=== PATIENT | female | born 1985 | race Caucasian/White ===

== ENCOUNTER 2018-12-31 14:44 | Emergency (ER) | payer SELFPAY ==
[2018-12-31 14:45] VITALS: BP 160/102; PULSE 100; RESP 16; TEMP 37; O2SAT 98; BMI 28.4
[2018-12-31 15:09] LABS: Bacteria 0 SEEN /hpf (None Seen); Mucous, Urine 0 SEEN /hpf (<or=2+); White Blood Cells 0 SEEN /hpf (0-5)
[2018-12-31 15:19] LABS: Color, Urine Straw (Yellow); Glucose, Dipstick Normal (Normal); Ketone-Dipstick Negative (Negative); Leukocyte Esterase-Dipstick Negative /ul (Negative); Nitrite-Dipstick Negative (Negative); Occult Blood-Urine 150 /ul (Negative); Protein-Dipstick Negative (Negative); Urine Bilirubin Dipstick Negative (Negative); Urine Clarity Clear (Clear); Urine Urobilinogen Normal (Normal)
[2018-12-31 15:29] LABS: Red Blood Cells-Urine 0-5 SEEN /hpf (0-5); Squamous Epithelial Cells - UA 0-5 SEEN /hpf (5-10)
[2018-12-31 15:48] VITALS: RESP 16
--- NOTE | 2018-12-31 15:57 | ED.VIS.GEN ---
History of Present Illness Informant: Patient Onset: Month(s) Context: Gradual Onset Timing: Intermittent, Waxes and wanes Current Severity: Moderate Maximum Severity: Moderate Worsened by: some movements Relieved by: voiding Narrative: Temitope is a 33-year-old female who presents with intermittent left adnexal tenderness for 2 years. Usually is related to her menstrual cycle and lasts about a day. She has noted the pain to becoming more frequent and has been constant for the last 3 weeks. Last menstrual period was 3 days ago. She denies dysuria but voiding does improve the pain. She also complains of urinary frequency. She denies vaginal discharge or fever or chills. Intermittently the pain does radiate to her back. Prior similar symptoms: No Recent Illness/Hospitalization: No <Jenny Nicole - Last Filed: 12/31/18 17:36> <Jeimy Adam - Last Filed: 01/01/19 02:23> Chief Complaint: Abd Pain Past Medical History Smoking Status: Current every day smoker <Jenny Nicole - Last Filed: 12/31/18 17:36> <Jeimy Adam - Last Filed: 01/01/19 02:23> - Allergies and Home Meds Allergies/Adverse Reactions: Allergies No Known Allergies Allergy (Verified 12/31/18 15:44) Primary Care Physician: Fabio Lara MD [Primary Care Provider] - Gregg Navarro [STAFF PHYSICIAN] - Review of Systems General: Denies: Chills, Fever Eyes: Denies: Visual changes - left, Blurred vision - left Cardiovascular: Denies: Chest pain, Palpitations Respiratory: Denies: Dyspnea, Cough, Sputum Gastrointestinal: Denies: Abdominal pain, Nausea, Vomiting Genitourinary: Reports: Frequency. Denies: Dysuria, Hematuria Musculoskeletal: Denies: Myalgias, Arthralgias Neurological: Denies: Headache, Weakness, Parasthesia <Jenny Nicole - Last Filed: 12/31/18 17:36> Physical Exam Vital Signs/Narrative: Vital Signs Temp Pulse Resp BP Pulse Ox 12/31/18 15:48 16 12/31/18 14:45 98.6 F 100 16 160/102 H 98 Inital Vital Signs reviewed: Yes General: Well nourished, Well developed Head: Normocephalic, Atraumatic Eyes: Perrl, EOMI ENT: Moist mucous membranes Cardiovascular: Regular rate, Regular rhythm Respiratory: No distress, CTA bilaterally Abdomen: Soft, Tender. Negative for: Nondistended, Guarding, Rebound tenderness : - - Bimanual exam reveals fullness and tenderness to the left adnexal region. No discharge or blood was noted on glove. Back: Nontender, Normal Inspection. Negative for: CVA tenderness Extremities: Nontender, No edema Skin: Normal color, No rash Neurological: Alert, Oriented x3 Psychological: Normal affect, Normal Mood <BonnieJenny - Last Filed: 12/31/18 17:36> Abdomen: Nondistended <Jeimy Adam - Last Filed: 01/01/19 02:23> Diagnostic/Tx/Re-eval - Medical Decision Making Bimanual exam revealed fullness and tenderness at the left adnexal region. There was no purulent drainage or fever concerning for tubo-ovarian abscess. This is consistent with ovarian cyst versus mass. test was negative and urinalysis did reveal blood but she does not describe kidney stone type pain or UTI. She was treated with Toradol with good results. She instructed to use Naprosyn as prescribed and heating pad for her pain. She is also instructed to follow-up with [facility] for further evaluation of her pain. She understands that this may be an ovarian cyst versus a mass. Pelvic ultrasound was not available at this time she will follow-up as an outpatient. <Jenny Nicole - Last Filed: 12/31/18 17:36> - Medical Decision Making Patient is a 33-year-old female who presents with left pelvic pain which has been ongoing for months to years. She states it comes and goes throughout her menstrual cycle. She denies urinary complaints. Abdomen is soft with minimal left lower quadrant tenderness, no rebound or guarding. hCG negative. She had improvement following Toradol. She is instructed to take Naprosyn. She is advised to follow-up with [facility]. Advised to return to the ED for worsening complaints. <JairJeimy - Last Filed: 01/01/19 02:23> ED Disposition <BonnieJenny - Last Filed: 12/31/18 17:36> <JairJeimy - Last Filed: 01/01/19 02:23> - Plan for ED Patient: Disposition: Home or Assisted Living Diagnosis: Ovarian cyst, Pelvic pain Prescriptions: Naproxen [Naprosyn] 500 mg PO BID PRN #20 tab Referrals: Fabio Lara MD [Primary Care Provider] - Gregg Navarro [STAFF PHYSICIAN] -
[2018-12-31] MEDS: Ketorolac 30 MG/ML Syringe IM (16:32)
[2018-12-31 17:03] LABS: Internal QC Validated? YES +Cl - CLEAR BKGD
[2018-12-31 17:07] LABS: Pregnancy, Urine Negative Negative
[2018-12-31 17:36] VITALS: RESP 18
--- NOTE | 2018-12-31 18:29 | ED.RN ---
Pt called back inquiring about rx. did not receive one. After referencing the CLERICAL AIDE TEACHER pt was given option to purchase Naproxen OTC or return for script. Pt was agreeable to purchasing med OTC.
== END 2018-12-31 17:55 | disposition home or self-care (01) ==
PROVIDERS: Emergency Provider Nurse Practitioner; Family Provider Family Medicine; PCP Family Medicine
DX: N83.209 Unspecified ovarian cyst, unspecified side (principal); R10.2 Pelvic and perineal pain; R35.0 Frequency of micturition; F17.200 Nicotine dependence, unspecified, uncomplicated
CPT/HCPCS: 81001; 81025; 96372; 99282

== ENCOUNTER → 2019-01-11 12:17 | Outpatient (CLI) | payer SELFPAY ==
[2018-12-31 14:45] VITALS: BMI 28.4
--- NOTE | 2019-01-11 12:24 | US_ITS ---
STUDY: ULTRASOUND TRANSVAGINAL CLINICAL: Female, 33 years old. Left lower quadrant pain 6 months TECHNIQUE: Transvaginal and transabdominal (Transvaginal imaging performed for enhanced visualization of uterus and endometrium, and posterior adnexal structures). COMPARISON: None. FINDINGS: The uterus is anteverted measuring 8.1 x 5.4 x 3.3 cm. The myometrium is normal. There are somewhat prominent subserosal uterine veins. Nabothian cyst of the cervix. Endometrium 9 mm, normal echotexture. No pelvic cul-de-sac free fluid. The right ovary measures 31 x 30 x 24 mm, normal vascularity, small physiologic follicles, normal echotexture. There is no right adnexal mass or suspicious cyst. The left ovary measures 40 x 44 x 23 mm. Normal vascularity. Crenelated simple appearing cyst measuring 20 x 14 x 14 mm, most consistent with a cyclical involuting corpus luteum cyst. Vasculature in the left adnexa is somewhat prominent. US/Pelvic (Non ) IMPRESSION: Involuting 20 mm physiologic dominant follicle of the left ovary. Normal right ovary. Normal myometrium and endometrium. Somewhat prominent vasculature in the left adnexa and prominent subserosal uterine veins suggests the possibility of nutcracker phenomenon which may contribute to symptoms of pelvic venous congestion. Electronically Signed: Ahmet Shi MD at 15:03 EDT Tel , Service support ,
--- NOTE | 2019-01-11 12:24 | US_ITS ---
STUDY: ULTRASOUND TRANSVAGINAL CLINICAL: Female, 33 years old. Left lower quadrant pain 6 months TECHNIQUE: Transvaginal and transabdominal (Transvaginal imaging performed for enhanced visualization of uterus and endometrium, and posterior adnexal structures). COMPARISON: None. FINDINGS: The uterus is anteverted measuring 8.1 x 5.4 x 3.3 cm. The myometrium is normal. There are somewhat prominent subserosal uterine veins. Nabothian cyst of the cervix. Endometrium 9 mm, normal echotexture. No pelvic cul-de-sac free fluid. The right ovary measures 31 x 30 x 24 mm, normal vascularity, small physiologic follicles, normal echotexture. There is no right adnexal mass or suspicious cyst. The left ovary measures 40 x 44 x 23 mm. Normal vascularity. Crenelated simple appearing cyst measuring 20 x 14 x 14 mm, most consistent with a cyclical involuting corpus luteum cyst. Vasculature in the left adnexa is somewhat prominent. US/Transvaginal Non- IMPRESSION: Involuting 20 mm physiologic dominant follicle of the left ovary. Normal right ovary. Normal myometrium and endometrium. Somewhat prominent vasculature in the left adnexa and prominent subserosal uterine veins suggests the possibility of nutcracker phenomenon which may contribute to symptoms of pelvic venous congestion. Electronically Signed: Ahmet Shi MD at 15:03 EDT Tel , Service support ,
== END ==
PROVIDERS: Family Provider Family Medicine; PCP Family Medicine
DX: R10.2 Pelvic and perineal pain (principal)
CPT/HCPCS: 76830; 76856; 93976

== ENCOUNTER → 2019-03-09 12:05 | Outpatient (CLI) | payer SELFPAY ==
[2019-03-09 08:26] VITALS: BMI 28.4
== END ==
LOC: LABSPEC 12:08
PROVIDERS: Family Provider Family Medicine; PCP Family Medicine; Referring Provider Obstetrics & Gynecology; Visit Provider Obstetrics & Gynecology
DX: N94.89 Other specified conditions associated with female genital organs and menstrual cycle (principal)
CPT/HCPCS: 87086; 87088

== ENCOUNTER → 2019-03-20 12:51 | Outpatient (CLI) | payer SELFPAY ==
[2019-03-09 08:26] VITALS: BMI 28.4
--- NOTE | 2019-03-20 12:57 | CT_ITS ---
STUDY: CT ABDOMEN AND PELVIS WITH AND WITHOUT CONTRAST REASON FOR EXAM: Female, 33 years old. Microscopic hematuria RADIATION DOSAGE (If Supplied By Facility): CTDIvol = ( 12.76 ) mGy, DLP = ( 1738.51 ) mGycm TECHNIQUE: Transaxial images were obtained from the dome of the diaphragm to the symphysis pubis without oral contrast. IV Isovue 300 100CC was administered. Sagittal and coronal images were reconstructed. Individualized dose optimization techniques were used for this CT. COMPARISON: None. FINDINGS: The visualized lung bases are unremarkable. The visualized portions of the heart are within normal limits. Normal liver. Normal gallbladder and extrahepatic biliary system. Normal spleen. Normal pancreas. Normal bilateral adrenal glands. There are multiple small cysts in the right kidney measuring up to 1.0 cm. Several cystic structures exophytic some are parenchymal. There is no evidence of hydronephrosis. There are multiple similar appearing left-sided renal cysts the largest of which is an exophytic cyst measuring 2.2 x 1.8 cm. No evidence of hydronephrosis. Normal visualized stomach. Normal small intestine. There is a tortuous appearance of the colon. There is a redundant tortuous appearance of the distal sigmoid and rectum. The appendix is visualized and appears normal. Normal abdominal aorta. Normal inferior vena cava. Normal retroperitoneum. Normal urinary bladder. Normal visualized uterus. Normal abdominal wall. There is slight anterolisthesis at the level of L5-S1 mild grade 1 spondylolisthesis. There is spondylolysis. There is a broad disc protrusion there is moderate neural foraminal narrowing and minimal central stenosis. At L4-L5 there is minimal neural foramina narrowing no significant central stenosis. CT/CT Abd/Pelvis W/WO Contrast IMPRESSION: No visualized renal calculi however there are multiple cysts throughout both kidneys. The largest cysts have benign appearing features. Recommend consideration for follow-up serial renal ultrasound on a short-term basis then in 6 months if the cyst still appear benign. No visualized renal ureteral bladder calculi. Tortuous redundant appearing decompressed large bowel loops. Electronically Signed: Maranda Schuler MD at 21:45 EDT Tel , Service support ,
== END ==
PROVIDERS: Family Provider Family Medicine; PCP Family Medicine; Referring Provider Urology; Visit Provider Urology
DX: R31.9 Hematuria, unspecified (principal)
CPT/HCPCS: 74178; Q9967

== ENCOUNTER 2019-05-16 07:31 | Day surgery (SDC) | payer MEDICAID, SELFPAY ==
[2019-04-05 14:50] VITALS: BMI 30.4
--- NOTE | 2019-05-15 21:53 | HP.PCM_ITS ---
- Problem List (1) Acute pain in female pelvis Status: Acute Comment: h/o dysmenorrhea, since mid december, recommend diagnostic laparoscopy, d and c hysteroscopy, chromotubation (2) Pelvic congestion Status: Acute Comment: possible nutcracker phenomenon seen on ultrasound. start with NSAIDs, (3) Primary female infertility Status: Acute Comment: recommend chromotubation and laparoscopy, recommend semen analysis History and Physical Date of Admission: 05/16/19 Intake Vital Signs 04/05/19 Height 5 ft 3 in 04/05/19 Weight: 171 lb 8 oz 04/05/19 Body Mass Index (BMI) 30.4 04/05/19 Blood Pressure 148/86 H 04/05/19 Body Mass Index (BMI) 28.4 Intake Visit Reasons: 4 WEEK FOLLOW UP PER Night Time Nanny Required: No Is patient in pain?: Yes Pain scale (1-10): 4 Allergies No Known Allergies Allergy (Verified 04/05/19 14:50) Medications Naproxen [Naprosyn] 500 mg PO BID PRN #20 tab 12/31/18 [Rx Confirmed 04/05/19] cyclobenzaprine 10 mg tablet 10 mg PO TID PRN #30 tab 03/09/19 [Rx Confirmed 04/05/19] ibuprofen 200 mg capsule 200 mg PO Q6H 03/09/19 [History Confirmed 04/05/19] ibuprofen 200 mg tablet 600 mg PO Q6H PRN #90 tab 03/09/19 [Rx Confirmed 04/05/19] Post menopausal: No Patient : No : No PFSH Medical History Anxiety (Acute) Surgical History History of wisdom tooth extraction, class II edentulism (Acute) S/P tonsillectomy and adenoidectomy (Acute) Family History Father Heart disease S/P triple vessel bypass Social History (Updated 04/05/19 @ 15:25 by Ofe Carballo MD) Smoking Status: Current every day smoker alcohol intake: current substance use type: marijuana caffeine: Yes what type of physical activity do you participate in: walking seatbelt use: always do you feel safe at home: Yes additional social history: Boyfriend- [facility] at [employer] 4 WEEK FOLLOW UP PER : Details: NISSA COTA is a 33 year old who presents for follow of lower pelvic pain and dyspareuia. she is having discomfort still, limiting work and activities. she had a normal cystoscopy with jackelin spain that was normal. she has a history of infertility for three years and is wanting to maintain fertility. she is ready to proceed with surgical evaluation. she had an abnormal ct scan that showed a disc protusion and renal cysts. Pregancy History 0 Elective abortions Hx Para Spontaneous abortions Hx # Term Pregnancies Ectopic pregnancies Hx # Pregnancies Multiple births # of living children ROS Const Constitutional: Denies fatigue, fever(s), headache(s), increased appetite, poor appetite, weight gain or weight loss ENT ENT: Denies dry mouth Exam Const General: cooperative, healthy appearing, comfortable, no acute distress, well developed Orientation: alert HENMT Head: normal to inspection, normocephalic Ears: hearing grossly normal bilaterally, external ears normal Nose: external nose normal, nares normal Face and sinus: normal facial exam Neck Neck: normal visual inspection, no lymphadenopathy, trachea midline Thyroid: thyroid normal Resp Effort & Inspection: normal respiratory effort Musc Other: gross motor intact no deficits, full bilateral strength Skin General: no rashes or lesions noted Neuro Motor: muscle tone normal throughout Assessment & Plan Problems 1. Primary female infertility N97.9 recommend chromotubation and laparoscopy, recommend semen analysis 2. Pelvic congestion N94.89 possible nutcracker phenomenon seen on ultrasound. start with NSAIDs, 3. Acute pain in female pelvis R10.2 h/o dysmenorrhea, since mid december, recommend diagnostic laparoscopy, d an d c hysteroscopy, chromotubation Plan After discussing the patient's diagnosis and treatment plan options, patient wishes to proceed with surgical management. I have discussed with the patient the risks, benefits, and alternatives of the procedure which include but are not limited to risks of anesthesia, bleeding, infection, possible damage to bowel, bladder, or surrounding vasculature which could lead to additional surgery to evaluate any complications. Patient agrees to procedure and wishes to proceed. ACOG/uptodate references given for additional information regarding procedure. Problem list updated and treatment plans were reviewed with the patient and relevant educational handouts given. See problem list details for specific plan information. Coding Level of Care Code Off vis,est,level 4 Diagnoses Primary female infertility N97.9 Pelvic congestion N94.89 Acute pain in female pelvis R10.2 UPDATE- I have seen the patient and performed any clinically relevant updates to the history and physical exam. Ofe Carballo MD
--- NOTE | 2019-05-16 | EMB_PTH ---
PATIENT: NISSA COTA LOC: [facility] [place] U#:[id number] AGE/SX: 34/F ROOM: RE05/16/[address]: Dr. Ofe Carballo MD : [id number] BED: DIS: 05/16/2019 SPEC #: [id number] RECD: 05/16/19 13:17 STATUS: HUE CL #: [id number] CORRIE: 05/16/19 00:[address]: Ofe Carballo DEPT: SURGICAL PATHOLOGY RECD BY: Edwin Byrd ENTERED: 05/16/19 13:17 SP TYPE: ENDOM BX/C OT DR: No Primary Care Phys Tissues: Endometrium, NOS Procedures: Surgery Specimen Level IV HEADER OPERATION: Hysteroscopy, D & C, chromotubation PRE-OP DIAGNOSIS: Acute pelvic pain; pelvic congestion; infertility TISSUE SUBMITTED: Endometrial curettings MICROSCOPIC DIAGNOSIS Endometrium, curettings: Secretory endometrium. Rare fragments of detached benign metaplastic squamous epithelium. AM:ilsa 05/17/19 MICROSCOPIC DESCRIPTION Slides are reviewed. GROSS DESCRIPTION Received in fixative is one container labeled with the patient's name and designated endometrial curettings. The specimen consists of multiple fragments of hemorrhagic soft tissue mixed with mucoid tissue that in aggregate measure 5 x 3 x 0.3 cm. A few of the fragments also show greenish dye discoloration. The entire specimen is submitted in two cassettes. / SJ:ilsa 05/16/19 TC:5 CPT: 25067
--- NOTE | 2019-05-16 07:25 | PCM.OPRPT ---
Problem List (1) Acute pain in female pelvis Status: Acute Comment: h/o dysmenorrhea, since mid december, recommend diagnostic laparoscopy, d and c hysteroscopy, chromotubation (2) Pelvic congestion Status: Acute Comment: possible nutcracker phenomenon seen on ultrasound. start with NSAIDs, (3) Primary female infertility Status: Acute Comment: recommend chromotubation and laparoscopy, recommend semen analysis Report of Operation Date of Procedure: 05/16/19 Pre-Operative Diagnosis: pelvic congestion pelvic pain infertility Post-Operative Diagnosis: Abnormal pelvic vasculature questionable fallopian tube blockage polypoid uterine cavity Surgery/Procedure Performed:: d and c hysteroscopy diagnostic laparoscopy chromotubation Description of Surgical Findings:: Pelvic congestion regularly on the right ovarian fossa going into the cervix and uterus. Extravasation of the methylene blue into the myometrium and vasculature no fallopian tube spillage seen bilaterally blockage suspected thickened polypoid endometrial lining salesperson terrazzo tiles: Benjamín Steele Type of Anesthesia:: General Special Medications: none Specimen's removed: EMC Drains: none Estimated Blood Loss (mL): 25 Fluids Replaced: crystalloid Description of Procedure: Patient was taken in the operating room and was placed under general anesthesia was prepped and draped in normal sterile fashion in the dorsal lithotomy position. Bladder was drained of clear urine and SCDs were on preoperatively. Uterus was sounded and a uterine manipulator was placed after dilating. Attention was then paid to the abdominal portion of the procedure and the umbilicus was elevated with towel clamps and injected with Marcaine and after a 5 mm incision was made and the Veress needle was entered into the abdomen confirmed to be intra-abdominal with a low opening pressure of less than 5 mmHg. Abdomen was insufflated with CO2 gas however pressure began to increase rapidly and therefore a 5 mm optical trocar was placed under direct visualization and significant pneumoperitoneum was seen and therefore a left upper quadrant port after placement of an OG tube by anesthesia was inserted, was attempted to insert a Veress needle in the midclavicular line 2 cm below the lowest rib and good placement cannot be confirmed and therefore the open Betancourt technique was taken at the umbilicus. Thickened rectus belly muscles were seen right at the base of the umbilicus which had led to the difficulty entering the abdomen. Betancourt trocar was placed after sutures tied bilaterally and pelvic and upper abdominal structures were well visualized.. Uterus was well visualized and bilateral fallopian tubes identified. Possible small endometriosis implant was seen but nothing active suspected. No adhesions or abnormalities were seen grossly in the lower or upper abdomen. Methylene blue fluid was inserted through the uterine manipulator and bilateral tubal blockage was suspected due to lack of spillage of the dye. The dye was noted to extravasate into the myometrium and surrounding vasculature though and therefore it was manipulated to a different area in the uterus but still this finding was seen. Balloon was taken down with no difference seen and therefore bilateral tubal patency could not be confirmed. Liver and upper abdomen were visualized notably within normal limits and no other gross abnormalities were seen in the abdomen. All instruments removed from the abdomen after gas was desufflated. Fascia was closed with 0 Vicryl and port sites were closed with 3-0 Monocryl Steri's and op sites were applied. A weighted speculum was placed in the vagina and the anterior lip of the cervix was grasped with a single-tooth tenaculum. Cervix was progressively dilated to allow passage of a 5 mm hysteroscope. The lining was fully visualized and noted to have polypoid thickened irregular lining. Uterine sounded to 9 cm. Curettage was performed and a significant amount of tissue was removed, sent to pathology. All instruments were removed from the vagina and excellent hemostasis was noted. Patient was awoken and taken to recovery in stable condition. Grafts/Implants Used: none - Complications none - Admit VTE Documentation VTE Present on Admission: No Multi Select Codes - Urinary/Genital Urinary/Genital CPT Codes: 33734 Chromotubation, 72765 Hysteroscopy, diagnostic, Other Procedure See Report - diagnostic laparoscopy- please tell shelley to add this code
--- NOTE | 2019-05-16 07:32 | PCM.DC.TUB ---
Discharge Diet: No Restrictions - Increase fluid intake for the next 48 hours. Discharge Activity: Return to Normal Activity, May Drive - when you are no longer taking narcotic pain medications., May Shower, May Take a Tub Bath - in 7 days Additional Activity Instructions:: Ambulate often the next week after surgery. Nothing in the vagina for 5 days. Call your doctor if your incision/area has: Continuous Slow Oozing, Sudden Increased Bleeding, Increased Pain/ Swelling, Increased Redness, Foul Smelling Discharge Call your doctor if you observe: Fever of 101 or Higher Allergies/Adverse Reactions: Allergies No Known Allergies Allergy (Verified 04/25/19 13:17) Medications to take at Discharge cyclobenzaprine 10 mg tablet 10 mg PO TID PRN #30 tab 03/09/19 ibuprofen 200 mg tablet 600 mg PO Q6H PRN #90 tab 03/09/19 Naproxen [Naprosyn] 250 - 500 mg PO Q8H PRN PRN #30 tab 05/16/19 Oxycodone HCl/Acetaminophen [Percocet 5-325] 1 - 2 tab PO Q6H PRN PRN 7 Days #15 tab 05/16/19 The following prescriptions were given: Naproxen [Naprosyn] 250 - 500 mg PO Q8H PRN PRN #30 tab PRN Reason: MILD PAIN Transmission Status: Sent to [facility] Oxycodone HCl/Acetaminophen [Percocet 5-325] 1 - 2 tab PO Q6H PRN PRN 7 Days #15 tab PRN Reason: Pain Transmission Status: Sent to [facility] Orders to be completed after discharge: Type & Screen Time Frame: 05/02/19, Facility: [facility], Location: Laboratory Basic Metabolic Profile (BMP) Time Frame: 05/02/19, Facility: [facility], Location: Laboratory CBC-Complete Blood Cnt No Diff Time Frame: 05/02/19, Facility: [facility], Location: Laboratory ,Urine Time Frame: 05/02/19, Facility: [facility], Location: Laboratory Primary Care Physician: Fabio Lara MD [Primary Care Provider] - Test Results: Test results from this visit will be discussed in further detail at your follow-up appointment, if applicable. Please Follow Up With: Ofe Carballo MD - [phone]
[2019-05-16 07:54] VITALS: BP 151/94; PULSE 105; RESP 16; TEMP 37.2; O2SAT 100; BMI 30.7
[2019-05-16 07:56] LABS: Internal QC Validated? YES +Cl - CLEAR BKGD
[2019-05-16 08:08] LABS: Pregnancy, Urine Negative Negative
[2019-05-16] MEDS: Lactated Ringers 1,000 ML 100 ML IV (08:10)
[2019-05-16 08:24] LABS: Hematocrit 39.5 % (37-47); Hemoglobin 13.6 g/dL (12.0-15.0); Mean Corp Hgb Conc 34.4 g/dL (32-36); Mean Corpuscular Hgb 32.5 pg (27.0-32.0); Mean Corpuscular Volume 94.5 fL (81-99); Mean Platelet Vol. 9.8 fl (6.2-12.0); Platelet Count 310 K/mm3 (150-450); RBC Distribution Width CV 12.5 % (11.6-14.6); RBC Distribution Width SD 43.7 fl (35.1-43.9); Red Blood Count 4.18 M/mm3 (4.2-5.4); White Blood Count 10.2 K/mm3 (4.4-11.0)
[2019-05-16 08:55] LABS: Anion Gap 7 (5-15); BUN 16 mg/dL (7-18); BUN/Creat Ratio 20.1 RATIO (10-20); Calcium,Total 8.6 mg/dL (8.5-10.1); Chloride 109 mmol/L (98-107); EST Glomerular Filtration Rate 87 mL/min (>60); Est Glom Filt Rate - Afr Amer 105 mL/min (>60); Estimated Creatinine Clearance 80.42 ml/min; Glucose 91 mg/dL (74-106); Potassium 4.2 mmol/L (3.5-5.1); Sodium Level 138 mmol/L (136-145)
[2019-05-16] MEDS: Bupivacaine 0.25% 30 ML Vial (09:25)
[2019-05-16 10:12] VITALS: BP 127/83; BP 151/94; PULSE 86; RESP 16; TEMP 36.9; O2SAT 93
[2019-05-16 10:15] VITALS: BP 133/81; BP 151/94; PULSE 83; RESP 18; O2SAT 93
[2019-05-16 10:49] VITALS: BP 131/84; BP 151/94; PULSE 83; RESP 18; O2SAT 100
[2019-05-16 11:04] VITALS: BP 138/83; BP 151/94; PULSE 90; RESP 18; TEMP 37.3; O2SAT 100
[2019-05-16] MEDS: HYDROcodone Bitartrate/Apap 5/325 Tablet PO ×2 (11:54→12:22)
[2019-05-16 13:19] VITALS: BP 151/94
== END 2019-05-16 13:22 | disposition home or self-care (01) ==
LOC: SDC 07:32 → AC 07:33
PROVIDERS: Anesthesiology; Referring Provider Obstetrics & Gynecology; Visit Provider Obstetrics & Gynecology
PROC: 0UDB8ZZ Extraction of Endometrium, Via Natural or Artificial Opening Endoscopic (ICD-10-PCS; CPT 58558; principal; 2019-05-16 09:00)
PROC: (CPT 49320; 2019-05-16 09:00)
DX: N94.89 Other specified conditions associated with female genital organs and menstrual cycle (principal); N97.9 Female infertility, unspecified; N94.6 Dysmenorrhea, unspecified; R10.2 Pelvic and perineal pain; F17.200 Nicotine dependence, unspecified, uncomplicated; Z79.1 Long term (current) use of non-steroidal anti-inflammatories (NSAID)
CPT/HCPCS: 00952; 58350; 58558; 80048; 81025; 85027; 86850; 86900; 86901; 88305; J7120; J2405; Q9968

== ENCOUNTER → 2019-12-05 11:44 | Outpatient (CLI) | payer MEDICAID, SELFPAY ==
[2019-06-22 13:01] VITALS: BMI 31.3
--- NOTE | 2019-12-05 11:49 | US_ITS ---
STUDY: RENAL ULTRASOUND - COMPLETE REASON FOR EXAM: Female, 34 years old. BILATERAL RENAL CYSTS TECHNIQUE: Ultrasound evaluation of the kidneys was performed with real-time and static sam-scale imaging. COMPARISON: CT 03/20/2019 FINDINGS: RIGHT KIDNEY: Normal location of the right kidney, which is normal in size. The right kidney measures 10.7 x 5.9 x 4.7 cm. There is a normal cortex of the right kidney. The renal cortex measures 1.4 cm. Multiple right renal cysts, the largest measuring up to 13 mm. Nonobstructing right renal calculus measuring 6 x 4 x 4 mm. There is no right hydronephrosis. DISTAL RIGHT URETER: There is non-visualization of the distal right ureter. There is no demonstrated right ureterovesical junction calculus. There is a visualized right ureteral jet. LEFT KIDNEY: Normal location of the left kidney, which is normal in size. The left kidney measures 10.4 x 5.5 x 5.0 cm. There is a normal cortex of the left kidney. The renal cortex measures 1.2 cm. Multiple left renal cysts, the largest measuring up to 25 mm. Nonobstructing left renal calculus measuring 3 x 3 x 3 mm. There is no left hydronephrosis. BLADDER: The distended urinary bladder has a volume of for 42.25 ml. There is a normal wall thickness of the distended urinary bladder. There is no demonstrated mass within the urinary bladder. There are no demonstrated bladder calculi. US/Kidney and Bladder IMPRESSION: Bilateral renal cysts and nonobstructing calculi. No hydronephrosis. No solid renal masses are seen. Electronically Signed: Reynaldo Jefferson MD at 17:41 EDT Tel , Service support ,
== END ==
PROVIDERS: PCP Internal Medicine; Referring Provider Urology; Visit Provider Urology
DX: N28.1 Cyst of kidney, acquired (principal)
CPT/HCPCS: 76770

== ENCOUNTER → 2020-01-03 15:51 | Outpatient (CLI) | payer MEDICAID, SELFPAY ==
[2019-06-22 13:01] VITALS: BMI 31.3
--- NOTE | 2020-01-03 15:55 | CT_ITS ---
STUDY: CT ABDOMEN AND PELVIS WITHOUT CONTRAST REASON FOR EXAM: Female, 34 years old. PT STATED R/O KIDNEY STONES RADIATION DOSAGE (If Supplied By Facility): CTDIvol = ( 9.32 ) mGy, DLP = ( 465.51 ) mGycm TECHNIQUE: Transaxial images were obtained from the dome of the diaphragm to the symphysis pubis without oral contrast, and without intravenous contrast. Sagittal and coronal images were reconstructed. Individualized dose optimization techniques were used for this CT. COMPARISON: Renal ultrasound 12/05/2019 and prior abdomen and pelvic CT exam of 03/20/2019 FINDINGS: The visualized lung bases are unremarkable. The visualized portions of the heart are within normal limits. Normal liver. Normal gallbladder and extrahepatic biliary system. Normal spleen. Normal pancreas. Normal bilateral adrenal glands. Normal size of the right kidney. Stable right renal cysts. There is one flat 3 mm long nonobstructing calcification in the lower pole of the right kidney and a similar minimal calcification in the upper pole. Negative for hydronephrosis or ureteral stones. Stable appearance of the left kidney. Negative for hydronephrosis or stones. Normal visualized stomach. Normal small intestine. Normal colon. The appendix is visualized and appears normal. Normal abdominal aorta. Normal inferior vena cava. Normal retroperitoneum. Normal urinary bladder. Negative for pelvic mass or free fluid in the pelvis. Normal abdominal wall. Advanced degenerative disc changes at L5-S1 are essentially stable from prior exam. She has a slight anterolisthesis at this level secondary to bilateral pars interarticularis defect. CT/Abdomen/Pelvis without Cont IMPRESSION: Stable appearance of the kidneys bilaterally. Normal size and stable visualized simple cysts bilaterally. No additional imaging requirements regarding the cysts. There are minimal nonobstructing calcifications of the right kidney as described above without hydronephrosis, ureteral or bladder stones. No stones or hydronephrosis of the left kidney. No additional acute abdominal or pelvic findings. Electronically Signed: Lexy Story MD at 18:32 EDT , Service support ,
== END ==
PROVIDERS: PCP Internal Medicine; Referring Provider Urology; Visit Provider Urology
DX: N20.0 Calculus of kidney (principal); R10.9 Unspecified abdominal pain
CPT/HCPCS: 74176

== ENCOUNTER 2020-04-12 12:18 | Day surgery (SDC) | payer MEDICAID, SELFPAY ==
[2019-06-22 13:01] VITALS: BMI 31.3
--- NOTE | 2020-04-11 16:23 | HP.PCM_ITS ---
History and Physical Date of Admission: 04/12/20 Temitope Jeffery a 34 year old female who is returning for follow up regarding multiple GI concerns. I saw the patient in consultation 02/21/20. That note has been reviewed. ? She had been following with her?non [facility]?pot press operator and urologist, and she had been diagnosed with chronic pelvic pain, pelvic congestion syndrome. ? CT abd/pel without contrast 01/03/20: Normal visualized stomach. Normal small intestine. Normal colon. The appendix is visualized and appears normal. CT/Abdomen/Pelvis without Cont IMPRESSION: Stable appearance of the kidneys bilaterally. Normal size and stable visualized simple cysts bilaterally. No additional imaging requirements regarding the cysts. There are minimal nonobstructing calcifications of the right kidney as described above without hydronephrosis, ureteral or bladder stones. No stones or hydronephrosis of the left kidney. No additional acute abdominal or pelvic findings. ? Component Latest Ref Rng & Units 02/06/2020 Protein, Total 6.3 - 8.0 g/dL 7.8 Albumin 3.9 - 4.9 g/dL 5.0 (H) Calcium 8.5 - 10.2 mg/dL 9.9 Bilirubin, Total 0.2 - 1.3 mg/dL 0.4 Alkaline Phosphatase 34 - 123 U/L 58 AST 13 - 35 U/L 23 Glucose 74 - 99 mg/dL 92 BUN 7 - 21 mg/dL 10 Creatinine 0.58 - 0.96 mg/dL 0.77 Sodium 136 - 144 mmol/L 135 (L) Potassium 3.7 - 5.1 mmol/L 4.0 Chloride 97 - 105 mmol/L 99 CO2 22 - 30 mmol/L 23 Anion Gap 9 - 18 mmol/L 13 ALT 7 - 38 U/L 21 eGFR- ? >60 eGFR-All Other Races . >60 ? Component Latest Ref Rng & Units 02/06/2020 WBC 3.70 - 11.00 k/uL 7.31 RBC 3.90 - 5.20 m/uL 4.73 Hemoglobin 11.5 - 15.5 g/dL 15.2 Hematocrit 36.0 - 46.0 % 44.8 MCV 80.0 - 100.0 fL 94.7 MCH 26.0 - 34.0 pG 32.1 MCHC 30.5 - 36.0 g/dL 33.9 RDW-CV 11.5 - 15.0 % 12.5 Platelet Count 150 - 400 k/uL 360 MPV 9.0 - 12.7 fL 10.5 Neut% % 53.3 Abs Neut (ANC) 1.45 - 7.50 k/uL 3.89 Lymph% % 34.7 Abs Lymph 1.00 - 4.00 k/uL 2.54 Robeson% % 7.4 Abs Robeson <0.87 k/uL 0.54 Eosin% % 3.1 Abs Eosin <0.46 k/uL 0.23 Baso% % 1.5 Abs Baso <0.11 k/uL 0.11 (H) Nucleated Reds 0 /100 WBC 0.0 Absolute nRBC <0.01 k/uL <0.01 Diff Type ? Auto Diff WSR 0 - 20 mm/hr 2 ? HIDA scan 02/29/20: IMPRESSION: Normal gallbladder response to CCK. (92%) No scintigraphic evidence to support the diagnosis of either acute or chronic cholecystitis. No evidence for duodenogastric biliary reflux. ? Presenting complaint: The patient presents today reporting that she has had issues for about 3-4 years, with intermittent intense issues since December 29 2018. Dicyclomine helps with the cramping, but not nausea. The cramping pain is worse LLQ and may radiate up the left side to the LUQ. ? Reports nausea and acid reflux. Strong correlation with diet. ? Notes that eating wheat will cause tingling in her fingers and tongue as well as globus. Celiac testing has been negative. ? Also reports initial issues were related to anxiousness - like when traveling- getting on the plane. ? Having a bowel movement at least once a day. Stools may be loose. No blood or black stool. ? ? REVIEW OF SYSTEMS: GENERAL: No weight loss, malaise or fevers RESPIRATORY: Negative for cough, hemoptysis, wheezing, COPD, dyspnea or shortness of breath CARDIOVASCULAR: Negative for chest pain, leg swelling, hypertension, CHF or palpitations GI:As reported above. : No history of dysuria, frequency or incontinence DIRECTOR OF CONSERVATION: Negative for abnormal vaginal bleeding, abnormal vaginal discharge. LMP: 02/07/20. PSYCH: Positive for anxiety. HEMATOLOGY/LYMPHOLOGY Negative for prolonged bleeding, bruising easily or swollen nodes ENDOCRINE: Negative for cold or heat intolerance, polyuria, polydipsia and goiter NEURO: No history of headaches, syncope, paralysis, seizures or tremors All other reviewed and negative other than HPI. ? PAST MEDICAL HISTORY PAST MEDICAL HISTORY Diagnosis Date ? Anxiety and depression 2000 ? Cyst of kidney, acquired 05/26/2019 ? Female pelvic congestion syndrome 05/26/2019 ? Dr. aCrballo ? Generalized anxiety disorder 05/26/2019 ? Suicide attempt by cutting of wrist (HCC) 2000 ? ? PAST SURGICAL HISTORY PAST SURGICAL HISTORY Procedure Laterality Date ? LAPAROSCOPY DIAGNOSTIC ? 05/16/2019 ? TONSILLECTOMY AND ADENOIDECTOMY HX ? 1988 ? ? FAMILY HISTORY FAMILY HISTORY Problem Relation Age of Onset ? Hypertension Mother ? ? Lipids Mother ? ? Hypertension Father ? ? Coronary Artery Disease Father ? ? Hypertension Brother ? ? Coronary Artery Disease Maternal Grandfather ? ? Coronary Artery Disease Paternal Grandfather ? ? other (station agent) Other ? ? aunts with endometriosis ? ? CURRENT MEDICATIONS Current Outpatient Medications Medication Sig Dispense Refill ? pantoprazole DR (PROTONIX) 20 mg tablet Take 1 tablet by mouth once daily. 30 tablet 3 ? dicyclomine (BENTYL) 10 mg capsule Take 1 capsule by mouth four times daily as needed (abdominal pain). 120 capsule 5 ? No current facility-administered medications for this visit. ? ? SOCIAL HISTORY: Patient is single. She smokes 1/2 ppd. Reports her alcohol use as consuming beer, wine or liquor several times a week. ? PHYSICAL EXAMINATION: Blood pressure 147/83, pulse 110, height 162.6 cm (5' 4), weight 80.7 kg (178 lb), last menstrual period 03/12/2020, SpO2 100 %. General appearance: Well appearing, alert, in no acute distress, well-hydrated, well nourished. Skin: Skin color, texture, turgor normal, no suspicious rashes or lesions Head: Normocephalic, no masses, lesions, tenderness or abnormalities Eyes: Anicteric sclera. Pupils are equally round and reactive to light. Extraocular movements are intact. Oropharynx: Lips, mucosa, and tongue normal, teeth and gums normal, oropharynx normal Neck: Supple, no adenopathy; thyroid symmetric, normal size, no bruits Lungs: Lungs clear to auscultation. No wheezing, rhonchi, rales. Heart: RRR without murmur, gallop, or rubs. No ectopy Abdomen: Abdomen soft, non-tender. Bowel sounds normal. No masses, organomegaly Extremities: No deformities, edema, skin discoloration, clubbing or cyanosis. Good capillary refill. Peripheral pulses: Normal Neuro: Gait normal. Reflexes normal and symmetric. Sensation grossly intact. ? ? Impression: lower abd pain 2) altered bowel habits 3) pelvic congestion syndrome ? Plan: The patient will be scheduled for an upper endoscopy as well as a colonoscopy. She will require MAC. She requests [facility] due to transportation issues. ? Preparation for the procedures, using Miralax/Dulcolax, have been explained in detail. The risks, benefits, anticipated outcomes and possible complications were mentioned, including including failure to complete the endoscopy and perforation. I explained the procedure in understandable terms and the patient was given printed material concerning the planned procedure. The patient had the opportunity to ask questions concerning the planned procedure. The patient freely consents to the planned procedure. ? The patient is scheduled for a procedure at the [facility]. I have explained that his/her health and safety, as well as that of our staff is important. The risk of exposure to, or potential harm posed by the COVID-19 virus with having a procedure at this time is as minimal as possible. Measures are being taken to minimize any potential risk of infection. I have explained that he/she will see that the staff will be wearing masks and gloves. The patient's temperature will be taken on arrival, they will be asked a series of questions to reassess current wellness, and asked to use hand cable splicing technician foam. The bed areas are cleaned and the procedure rooms are thoroughly disinfected between patients. Procedure rooms will be alternated to give the disinfection more than enough time to ensure adequate protection for all involved. ? The patient is encouraged to call with any questions or concerns, or should there be any change in health status between now and the scheduled procedure. ? I have personally interviewed and examined this patient. I have read the information that the MARKETING AND COMMUNICATIONS OFFICER documented in this encounter. I spent 25 minutes in the visit, with more than 50% of the total [id number] time of the visit in counseling / coordination of elijah Islas RN CYBER SECURITY INSTRUCTOR.MOOSE HUNTER
--- NOTE | 2020-04-12 | COLBX_PTH ---
PATIENT: NISSA COTA LOC: [facility] U#:[id number] AGE/SX: 35/F ROOM: RE04/12/[address]: Dr. Opal Kelly MD : 1985 BED: DIS: 04/12/2020 SPEC #: [id number] RECD: 04/12/20 14:28 STATUS: HUE RELeah #: [id number] CORRIE: 04/12/20 00:[address]: Opal Kelly DEPT: SURGICAL PATHOLOGY RECD BY: Edwin Byrd ENTERED: 04/15/20 10:21 SP TYPE: COLON BX OTHR DR: Dr. Luis Hinojosa MD Tissues: A - Duodenum, NOS B - Gastric mucous membrane C - Gastric mucous membrane D - Sigmoid colon biopsy E - Rectum, NOS Procedures: Special Stain Group II Surgery Specimen Level IV Alcian Blue/PAS (control) HEADER OPERATION: Colonoscopy, EGD ([facility] [place]) PRE-OP DIAGNOSIS: Lower abdominal pain, altered bowel habits TISSUE SUBMITTED: A - Second portion of duodenum biopsy, B - Antrum of stomach biopsy, C - GE junction biopsy, D - Sigmoid polyp, E - Rectal polyp MICROSCOPIC DIAGNOSIS A. Second portion of duodenum, biopsy: No pathologic change. B. Gastric antrum, biopsy: Chronic gastritis. C. Gastroesophageal junction, biopsy: Squamous mucosa with changes of reflux. Junctional mucosa with no evidence of goblet cell metaplasia. See comment. D. Sigmoid colon polyp, biopsy: Tubular adenoma. E. Rectal polyp, biopsy: Cauterized hyperplastic polyp. AM:ilsa 04/16/20 COMMENT C. Alcian blue/PAS stain with matched control supports the above diagnosis. MICROSCOPIC DESCRIPTION Slides are reviewed. GROSS DESCRIPTION A - Received in fixative is one container labeled with the patient's name and designated second portion duodenum. The specimen consists of one irregular fragment of light white soft tissue that measures 0.3 x 0.2 x 0.1 cm. The specimen is totally submitted in one cassette. B - Received in fixative is one container labeled with the patient's name and designated antrum of stomach. The specimen consists of one irregular fragment of light white soft tissue that measures 0.3 x 0.3 x 0.1 cm. The specimen is totally submitted in one cassette. C - Received in fixative is one container labeled with the patient's name and designated GE junction biopsy. The specimen consists of two irregular fragments of light white soft tissue that in aggregate measure 0.5 x 0.3 x 0.1 cm. The specimen is totally submitted in one cassette. D - Received in fixative is one container labeled with the patient's name and designated sigmoid polyp. The specimen consists of a piece of white-pink polyp measuring 0.4 x 0.4 x 0.2 cm. The specimen is totally submitted in one cassette. E - Received in fixative is one container labeled with the patient's name and designated rectal polyp. The specimen consists of one irregular fragment of light white soft tissue that measures 0.3 x 0.3 x 0.1 cm. The specimen is totally submitted in one cassette. / SJ:rg 04/15/20 TC:3 [facility]: [id number] x5, [id number] ADDENDUM ADDENDUM ADDENDUM ADDENDUM 04/30/2020 11:42 ADDENDUM 04/30/2020 11:42 ADDENDUM 04/30/2020 11:42 ADDENDUM 04/30/2020 11:42 ADDENDUM 04/30/2020 11:42 E. Cauterized tubular adenoma cannot be excluded. AM:ilsa 04/30/20
[2020-04-12 12:35] VITALS: BP 150/77; PULSE 108; RESP 18; TEMP 36.8; O2SAT 99; BMI 31.0
[2020-04-12] MEDS: Lactated Ringers 1,000 ML 75 ML IV (13:02)
[2020-04-12 13:10] LABS: Internal QC Validated? YES +Cl - CLEAR BKGD; Pregnancy, Urine Negative Negative
[2020-04-12 14:19] VITALS: BP 114/61; BP 150/77; PULSE 78; RESP 16; TEMP 36.1; O2SAT 100
--- NOTE | 2020-04-12 14:19 | OP.CCLET_ITS ---
04/12/2020 Luis Hinojosa [address] [place] [address] Re : Upper GI endoscopy procedure for Temitope Jeffery Dear Dr. Hinojosa This procedure was performed on Sunday, April 12, 2020. My impressions and recommendations are as follows: Impressions : - Normal first portion of the duodenum and second portion of the duodenum. Biopsied. - Erythematous mucosa in the stomach. Biopsied. - Z-line irregular. Biopsied. Recommendations : - Discharge patient to home (ambulatory). - Resume previous diet. - Continue present medications. - Await pathology results. - Follow up with Gina Islas for pathology results in 1-2 weeks My findings are described in the full procedure note, which is enclosed. If I can be of further assistance, please feel free to contact me at Doctor phone number(s): , Work: . Sincerely, MD Opal Llamas MD 04/12/2020 2:19:08 PM This report has been signed electronically.
--- NOTE | 2020-04-12 14:19 | OP.EGD_ITS ---
Patient Name: Temitope Jeffery Procedure Date: 04/12/2020 1:40 PM Date of : 1985 Age: 35 Procedure: Upper GI endoscopy Indications: Upper abdominal pain, Heartburn, Suspected esophageal reflux Providers: Opal Kelly MD Medicines: See the Anesthesia note for documentation of the administered medications Patient Profile: Refer to note in patient chart for documentation of history and physical. Complications: No immediate complications. Estimated blood loss: None. Procedure: Pre-Anesthesia Assessment: - see anesthesia note After obtaining informed consent, the endoscope was passed under direct vision. Throughout the procedure, the patient's blood pressure, pulse, and oxygen saturations were monitored continuously. The gastroscope was introduced through the mouth, and advanced to the second part of duodenum. The upper GI endoscopy was accomplished without difficulty. The patient tolerated the procedure well. Scope In: 1:47:02 PM Scope Out: 1:52:36 PM Total Procedure Duration Time 0 hours 5 minutes 34 seconds Findings: The first portion of the duodenum and second portion of the duodenum were normal. Biopsies were taken with a cold forceps for histology. Verification of patient identification for the specimen was done by the nurse. Estimated blood loss was minimal. Striped mildly erythematous mucosa without bleeding was found in the stomach. Biopsies were taken with a cold forceps for histology. Verification of patient identification for the specimen was done by the nurse. Estimated blood loss was minimal. The Z-line was irregular. Small hiatal hernia was noted. Biopsies were taken with a cold forceps for histology. Verification of patient identification for the specimen was done by the nurse. Estimated blood loss was minimal. Impression: - Normal first portion of the duodenum and second portion of the duodenum. Biopsied. - Erythematous mucosa in the stomach. Biopsied. - Z-line irregular. Biopsied. Recommendation: - Discharge patient to home (ambulatory). - Resume previous diet. - Continue present medications. - Await pathology results. - Follow up with Gina Islas for pathology results in 1-2 weeks Procedure Code(s): --- Professional --- 87227, Esophagogastroduodenoscopy, flexible, transoral; with biopsy, single or multiple Diagnosis Code(s): --- Professional --- K31.89, Other diseases of stomach and duodenum K22.8, Other specified diseases of esophagus R10.10, Upper abdominal pain, unspecified R12, Heartburn CPT copyright 2017 [employer]. All rights reserved. The codes documented in this report are preliminary and upon hims coder review may be revised to meet current compliance requirements. MD Opal Llamas MD 04/12/2020 2:19:08 PM This report has been signed electronically. Number of Addenda: 0 Note Initiated On: 04/12/2020 1:40 PM
--- NOTE | 2020-04-12 14:23 | OP.CCLET_ITS ---
04/12/2020 Luis Hinojoas [address] [place] [address] Re : Colonoscopy procedure for Temitope Jeffery Dear Dr. Hinojosa This procedure was performed on Sunday, April 12, 2020. My impressions and recommendations are as follows: Impressions : - One 3 to 7 mm polyp in the sigmoid colon, removed with a hot snare (no picture). Resected and retrieved. - One 3 to 5 mm polyp in the rectum, removed with a hot snare. Resected and retrieved. - Non-bleeding internal hemorrhoids. Recommendations : - Repeat colonoscopy date to be determined after pending pathology results are reviewed for surveillance based on pathology results. - Return to nurse practitioner - Gina Islas in 1-2 week. - Continue present medications. My findings are described in the full procedure note, which is enclosed. If I can be of further assistance, please feel free to contact me at Doctor phone number(s): , Work: . Sincerely, MD Opal Llamas MD 04/12/2020 2:22:41 PM This report has been signed electronically.
--- NOTE | 2020-04-12 14:23 | OP.COLON_ITS ---
Patient Name: Temitope Jeffery Procedure Date: 04/12/2020 1:53 PM Date of : 1985 Age: 35 Procedure: Colonoscopy Indications: Lower abdominal pain Providers: Opal Kelly MD Medicines: See the Anesthesia note for documentation of the administered medications Patient Profile: Refer to note in patient chart for documentation of history and physical. Last Colonoscopy: none. The patient's first colonoscopy is today. Complications: No immediate complications. Procedure: Pre-Anesthesia Assessment: - see anesthesia note After I obtained informed consent, the scope was passed under direct vision. Throughout the procedure, the patient's blood pressure, pulse, and oxygen saturations were monitored continuously. The Colonoscope was introduced through the anus and advanced to the cecum, identified by the appendiceal orifice, IC valve and transillumination. The colonoscopy was performed without difficulty. The patient tolerated the procedure well. The quality of the bowel preparation was adequate. Scope In: 1:55:07 PM Scope Withdrawal Time 0 hours 12 minutes 57 seconds Scope Out: 2:12:35 PM Total Procedure Duration Time 0 hours 17 minutes 28 seconds Findings: The perianal and digital rectal examinations were normal. Pertinent negatives include normal sphincter tone. A 3 to 7 mm polyp was found in the sigmoid colon. The polyp was sessile. The polyp was removed with a hot snare. Resection and retrieval were complete. Verification of patient identification for the specimen was done by the nurse. Estimated blood loss was minimal. A 3 to 6 mm polyp was found in the rectum. The polyp was sessile. The polyp was removed with a hot snare. Resection and retrieval were complete. Verification of patient identification for the specimen was done by the nurse. Estimated blood loss was minimal. Non-bleeding internal hemorrhoids were found. Impression: - One 3 to 7 mm polyp in the sigmoid colon, removed with a hot snare (no picture). Resected and retrieved. - One 3 to 5 mm polyp in the rectum, removed with a hot snare. Resected and retrieved. - Non-bleeding internal hemorrhoids. Recommendation: - Repeat colonoscopy date to be determined after pending pathology results are reviewed for surveillance based on pathology results. - Return to nurse practitioner - Gina Islas in 1-2 week. - Continue present medications. Procedure Code(s): --- Professional --- 84468, Colonoscopy, flexible; with removal of tumor(s), polyp(s), or other lesion(s) by snare technique Diagnosis Code(s): --- Professional --- D12.5, Benign neoplasm of sigmoid colon K62.1, Rectal polyp K64.8, Other hemorrhoids R10.30, Lower abdominal pain, unspecified CPT copyright 2017 [employer]. All rights reserved. The codes documented in this report are preliminary and upon customer logistics manager review may be revised to meet current compliance requirements. MD Opal Llamas MD 04/12/2020 2:22:41 PM This report has been signed electronically. Number of Addenda: 0 Note Initiated On: 04/12/2020 1:53 PM
[2020-04-12 14:25] VITALS: BP 118/79; BP 150/77; PULSE 78; RESP 16; O2SAT 100
[2020-04-12 14:30] VITALS: BP 124/76; BP 150/77; PULSE 73; RESP 16; O2SAT 100
[2020-04-12 14:35] VITALS: BP 118/57; BP 150/77; PULSE 71; RESP 16; TEMP 36.9; O2SAT 100
[2020-04-12 14:57] VITALS: BP 150/77
== END 2020-04-12 14:58 | disposition home or self-care (01) ==
LOC: EN 12:19 → AC 12:20
PROVIDERS: Anesthesiology; PCP Internal Medicine; Referring Provider Internal Medicine; Visit Provider Surgery
PROC: 0DJD8ZZ Inspection of Lower Intestinal Tract, Via Natural or Artificial Opening Endoscopic (ICD-10-PCS; CPT 45378; principal; 2020-04-12 13:25)
DX: D12.5 Benign neoplasm of sigmoid colon (principal); K62.1 Rectal polyp; K29.50 Unspecified chronic gastritis without bleeding; K44.9 Diaphragmatic hernia without obstruction or gangrene; K22.8 Other specified diseases of esophagus; K31.89 Other diseases of stomach and duodenum; K64.8 Other hemorrhoids; Z20.828 Contact with and (suspected) exposure to other viral communicable diseases; N94.89 Other specified conditions associated with female genital organs and menstrual cycle; F32.9 Major depressive disorder, single episode, unspecified; F41.1 Generalized anxiety disorder; F17.210 Nicotine dependence, cigarettes, uncomplicated; Z79.899 Other long term (current) drug therapy
CPT/HCPCS: 43239; 45385; 81025; 87426; 88305; 88313; C9803; J7120

== ENCOUNTER → 2021-03-05 | Outpatient (CLI) | payer MEDICAID, SELFPAY ==
[2021-03-05 13:09] LABS: D-Dimer Quantitative (DVT/PE) <= 0.27 FEU/ug/m (0.27-0.49)
== END | disposition home or self-care (01) ==
LOC: LABSPEC 12:11
PROVIDERS: PCP Internal Medicine; Referring Provider Nurse Practitioner; Visit Provider Nurse Practitioner
DX: R07.9 Chest pain, unspecified (principal); R00.0 Tachycardia, unspecified
CPT/HCPCS: 85379

== ENCOUNTER 2021-08-26 19:39 | Emergency (ER) | payer MEDICAID, SELFPAY ==
[2021-08-26 19:39] VITALS: BP 142/108; PULSE 91; RESP 18; TEMP 36.8; O2SAT 98; BMI 31.3
[2021-08-26 20:40] LABS: Absolute Lymphocyte Count 2.81 X10^3/uL (0.83-4.51); Absolute Neutrophil Count 7.8 X10^3/uL (2.0-7.7); Basophil# 0.11 X10^3/uL; Basophil% 0.9 % (0-1); Eosinophil# 0.14 X10^3/uL; Eosinophils% 1.2 % (0-5); Hematocrit 43.9 % (37-47); Hemoglobin 15.3 g/dL (12.0-15.0); Lymphocyte # 2.81 X10^3/ul (0.83-4.51); Mean Corp Hgb Conc 34.9 g/dL (32-36); Mean Corpuscular Hgb 33.4 pg (27.0-32.0); Mean Corpuscular Volume 95.9 fL (81-99); Mean Platelet Vol. 10.1 fl (6.2-12.0); Monocyte# 0.79 X10^3/uL; Monocyte% 6.7 % (0-10); NRBC Flagged by Analyzer 0 % (0-5); Neutrophil # 7.84 X10^3/uL (2.7-7.7); Neutrophil % 66.9 % (47-70); Platelet Count 382 K/mm3 (150-450); RBC Distribution Width CV 12.5 % (11.6-14.6); RBC Distribution Width SD 44.2 fl (35.1-43.9); Red Blood Count 4.58 M/mm3 (4.2-5.4); White Blood Count 11.7 K/mm3 (4.4-11.0)
[2021-08-26 21:01] LABS: Bacteria 0 SEEN /hpf (None Seen); Color, Urine Straw (Yellow); Glucose, Dipstick Normal (Normal); Ketone-Dipstick 5 mg/dl (Negative); Leukocyte Esterase-Dipstick Negative /ul (Negative); Mucous, Urine 0 SEEN /hpf (<or=2+); Nitrite-Dipstick Negative (Negative); Occult Blood-Urine 250 /ul (Negative); Protein-Dipstick Negative (Negative); Red Blood Cells-Urine 0 SEEN /hpf (0-5); Squamous Epithelial Cells - UA 0 SEEN /hpf (5-10); Urine Bilirubin Dipstick Negative (Negative); Urine Clarity Clear (Clear); Urine Urobilinogen Normal (Normal); Urine pH 6.5 (5.0 - 8.0); White Blood Cells 0 SEEN /hpf (0-5)
[2021-08-26 21:09] LABS: Internal QC Validated? YES +Cl - CLEAR BKGD; Pregnancy, Serum, hCG Quali. NEGATIVE Negative
[2021-08-26 21:10] LABS: Anion Gap 7 (5-15); BUN 11 mg/dL (7-18); BUN/Creat Ratio 11.6 RATIO (10-20); Calcium,Total 9.8 mg/dL (8.5-10.1); Chloride 103 mmol/L (98-107); Creatinine, Serum 0.95 mg/dL (0.55-1.02); EST Glomerular Filtration Rate 70 mL/min (>60); Est Glom Filt Rate - Afr Amer 85 mL/min (>60); Estimated Creatinine Clearance 66.42 ml/min; Glucose 102 mg/dL (74-106); Potassium 3.9 mmol/L (3.5-5.1); Sodium Level 137 mmol/L (136-145)
[2021-08-26 21:20] VITALS: BP 147/103; PULSE 97; RESP 18; TEMP 36.6; O2SAT 100
--- NOTE | 2021-08-26 21:41 | EDS_ITS ---
HPI HPI - Female History of Present Illness Chief Complaint: Abd Pain Narrative Narrative: 36-year-old female with distant history of kidney stones presenting with left flank pain which radiated around to the left side abdomen. She complains of hematuria. She was seen at urgent care earlier and had occult blood in her urine. She is not have concern for . No diarrhea or constipation. No vaginal complaints. She states he does have a history of renal cysts and has seen nephrology for this in the past. No a plan going forward. Patient has not seen urology. [facility] Medical History Anxiety Home Medications ibuprofen 200 mg capsule 200 mg PO Q6H PRN 06/22/19 [History Last Taken Unknown] buspirone 5 mg PO DAILY 04/09/20 [History Last Taken 04/10/20] dicyclomine 10 mg PO TID PRN PRN 04/09/20 [History Last Taken Unknown] pantoprazole 20 mg PO DAILY 04/09/20 [History Last Taken Unknown] atenolol 25 mg PO DAILY 08/26/21 [History Last Taken Unknown] Allergy/AdvReac Type Severity Reaction Status Date / Time adhesive tape Allergy Rash Verified 08/26/21 19:41 Family History Father Heart disease S/P triple vessel bypass Surgical History History of wisdom tooth extraction, class II edentulism Laparoscopic Chromotubation S/P tonsillectomy and adenoidectomy Social History Smoking Status: Current every day smoker tobacco type: cigarettes alcohol intake: current substance use type: marijuana caffeine: Yes what type of physical activity do you participate in: walking seatbelt use: always do you feel safe at home: Yes additional social history: Boyfriend- Works at [employer] ROS ROS ED Constitutional Constitutional ED: Reports sweats; Denies fever(s) Eyes Eyes: Denies blurry vision ENT ENT ED: Denies rhinorrhea or sore throat Cardiovascular Cardiovascular: Denies chest pain or palpitations Respiratory/Chest Respiratory/Chest: Denies cough or dyspnea Gastrointestinal Gastrointestinal: Reports nausea; Denies abdominal pain or vomiting Genitourinary Genitourinary ED: Reports dysuria and hematuria Musculoskeletal Musculoskeletal: Denies arthralgias or myalgias Integumentary Denies rash Neurologic Neurologic: Denies headache(s) or paresthesias Psychiatric Psychiatric: Denies anxiety or depression EXAM Physical Exam Const Vital Signs: 08/26/21 19:39 08/26/21 21:20 08/26/21 23:20 Temperature 98.2 F 97.9 F 97.9 F Temperature Source Temporal Temporal Temporal Pulse Rate 91 97 84 Respiratory Rate 18 18 16 Blood Pressure 142/108 H 147/103 H 140/84 H Blood Pressure Mean 119 117 102 Pulse Ox 98 100 99 Oxygen Delivery Method Room Air Room Air Room Air Positive well nourished General Appearance ED: NAD; Negative for pallor HEENT Reports moist mucous membranes Negative for trauma Eyes PERRL and EOMs intact bilaterally Resp normal respiratory effort and clear to auscultation bilaterally Cardio regular rate and regular rhythm GI normal to inspection, nondistended, normoactive bowel sounds Back/Spine General Back: CVA tenderness left Neuro oriented x3 Sensorium / Orientation: alert Psych mental status grossly normal Skin General Skin Exam: Negative for jaundice or pallor MDM MDM MDM Narrative Medical decision making narrative: Patient presenting with left flank pain. She has a very distant history of kidney stone. She states this was diagnosed by ultrasound. She never followed up with urology but did follow-up with nephrology as she had some renal cysts. Today she has had flank pain for about 5 days. Is intermittent. She describes sweating and nauseous nests with it. She does have urinary symptoms. She was seen in urgent care and had occult blood in her urine. On examination she has left CVA tenderness. Abdomen is benign. CBC shows a slight leukocytosis of 11.7. Hemoglobin slightly elevated at 50.3 platelets are normal. Renal function electrolytes are normal. Serum test is negative. Urinalysis shows occult blood without infection. Patient treated with morphine, Toradol, Zofran. CT of the abdomen pelvis does not show a kidney stone. It does show some changing renal cysts. Some of these have been unchanged. There is nothing acute in the abdomen. There is possibly some concern for some colitis however the patient does not have any GI symptoms other than nausea with her flank pain. Given this I will give her follow-up with nephrology and urology. She was amenable to this plan. Patient was counseled she need follow-up with the ultrasound as well. Impression: 1. Left flank pain 2. Renal cysts bilaterally 3. Nausea 4. Hematuria Lab Data Attestation: I reviewed the patient's lab results. Labs: Laboratory Results - last 24 hr 08/26/21 08/26/21 08/26/21 20:16 20:16 20:16 WBC 11.7 H RBC 4.58 Hgb 15.3 H Hct 43.9 MCV 95.9 MCH 33.4 H MCHC 34.9 RDW Std Deviation 44.2 H RDW Coeff of Kayleen 12.5 Plt Count 382 MPV 10.1 Immature Gran % (Auto) 0.300 Neut % (Auto) 66.9 Lymph % (Auto) 24.0 [place] % (Auto) 6.7 Eos % (Auto) 1.2 Baso % (Auto) 0.9 Absolute Neuts (auto) 7.8 H Absolute Lymphs (auto) 2.81 Nucleated RBC % 0 Sodium 137 Potassium 3.9 Chloride 103 Carbon Dioxide 27.0 Anion Gap 7 BUN 11 Creatinine 0.95 Estim Creat Clear Calc 66.42 Est GFR (MDRD) Af Amer 85 Est GFR (MDRD) Non-Af 70 BUN/Creatinine Ratio 11.6 Glucose 102 Calcium 9.8 Serum , Qual NEGATIVE Urine Color Urine Clarity Urine pH Ur Specific [place] Urine Protein Urine Glucose (UA) Urine Ketones Urine Occult Blood Urine Nitrite Urine Bilirubin Urine Urobilinogen Ur Leukocyte Esterase Urine RBC Urine WBC Ur Squamous Epith Cells Urine Bacteria Urine Mucus 08/26/21 20:55 WBC RBC Hgb Hct MCV MCH MCHC RDW Std Deviation RDW Coeff of Kayleen Plt Count MPV Immature Gran % (Auto) Neut % (Auto) Lymph % (Auto) [place] % (Auto) Eos % (Auto) Baso % (Auto) Absolute Neuts (auto) Absolute Lymphs (auto) Nucleated RBC % Sodium Potassium Chloride Carbon Dioxide Anion Gap BUN Creatinine Estim Creat Clear Calc Est GFR (MDRD) Af Amer Est GFR (MDRD) Non-Af BUN/Creatinine Ratio Glucose Calcium Serum , Qual Urine Color Straw Urine Clarity Clear Urine pH 6.5 Ur Specific [place] 1.010 Urine Protein Negative Urine Glucose (UA) Normal Urine Ketones 5 H Urine Occult Blood 250 H Urine Nitrite Negative Urine Bilirubin Negative Urine Urobilinogen Normal Ur Leukocyte Esterase Negative Urine RBC 0 SEEN Urine WBC 0 SEEN Ur Squamous Epith Cells 0 SEEN Urine Bacteria 0 SEEN Urine Mucus 0 SEEN Radiography Diagnostic Testing: Clinical Impression(s) from Imaging Studies Abdomen/Pelvis CT 08/26/21 21:45 ADDENDUM: 08/26/21 0375 Discharge Plan Triage Chief Complaint: Abd Pain Other Complaint: Cellulitis ED Provider: Marck Mcnally Dx/Rx/DC Orders Instructions: Simple Kidney Cysts, ED Flank Pain, Uncertain Cause, ED Hematuria Prescriptions: No Action ibuprofen 200 mg capsule 200 mg PO Q6H PRN (Reason: pain) RF: 0 buspirone 5 MG tablet 5 mg PO DAILY RF: 0 pantoprazole 20 MG tablet 20 mg PO DAILY RF: 0 dicyclomine 10 MG capsule 10 mg PO TID PRN PRN (Reason: stomach) RF: 0 atenolol 25 mg Tablet 25 mg PO DAILY RF: 0 Primary Care Provider: Luis Hinojosa Referrals: Stephanie Sousa DO [STAFF PHYSICIAN] - As soon as possible Anna Ferreira MD [STAFF PHYSICIAN] - As soon as possible Luis Hinojosa MD [Primary Care Provider] - Disposition Disposition: Home, Self Care Discharge Date/Time: 08/26/21 23:33
[2021-08-26] MEDS: Ketorolac 15 MG/ML Vial IV (21:45)
--- NOTE | 2021-08-26 21:45 | CT_ITS ---
ACR Level 3 findings have been noted. An addendum which confirms receipt of the report will follow. EXAM: CT abdomen and pelvis without contrast. HISTORY: flank EXAM: CT abdomen and pelvis without contrast. HISTORY: flank pain TECHNIQUE: CT Abdomen And Pelvis W/O Contrast Injection TECHNIQUE: A radiation dose optimization technique was utilized for this exam. COMPARISON: January 03, [address], prior ultrasound December 05, 2019. LIMITATIONS: None. LOWER CHEST: Normal. LIVER: Normal. GALLBLADDER/BILE DUCTS: Normal. PANCREAS: Normal. SPLEEN: Normal. ADRENAL GLANDS: Normal. KIDNEYS/URETERS/BLADDER: Suspicion of cyst at the upper pole of each kidney, the lesion at the upper pole of the left kidney is now mildly hyperdense, best seen on coronal images, it was previously hypodense, measuring 2.4 cm x 2 cm x 2.1 cm, similar size but increased density. Small punctate calcification at the right upper pole kidney, probably similar to prior exam, not as well seen previously. Similar small calcification at the lower pole of the right kidney and small presumed right lower lateral cyst with a slight punctate wall calcification, hypodense lesion measuring 1.2 cm. No harrison hydronephrosis or ureter stone. RETROPERITONEUM/AORTA: Normal. BOWEL/MESENTERY: No oral or rectal contrast is present. No dilated small bowel loops. Mild mesenteric adenopathy, similar to prior exam. No oral or rectal contrast is present. No suspicious small bowel dilatation. Collapsed segments of transverse colon. Minimal diverticulosis of descending colon. APPENDIX: Identified and normal. PERITONEUM: Normal. REPRODUCTIVE ORGANS: Normal. BONES/SOFT TISSUES: No acute abnormality. Moderate disc space narrowing and mild anterolisthesis and bilateral pars defects involving L5-S1, similar to prior exam. Also mild broadbase posterior midline and right lateral protruding-appearing disc at L4-L5. OTHER: None. CONCLUSION: No hydronephrosis or ureter stone. Collapsed and questionably minimally thick-walled transverse colon, correlate with any evidence of early or mild colitis. Renal changes. Limited evaluation of the kidneys on unenhanced exam. There are multiple and bilateral renal lesions which are not fully evaluated on unenhanced exam, including a exophytic lesion at the upper pole of the left kidney which was previously hypodense, now hyperdense, and a small lesion at the lateral right kidney with a faint wall calcification which is new or newly seen, not obviously simple cyst. Consider additional evaluation such as ultrasound or enhanced CT due to the apparent change in appearance of a few renal lesions on the unenhanced CT. Ultrasound of the kidneys recommended for further evaluation. Electronically Signed: Virginia Gustafson MD at 22:51 EDT , CT/Abdomen/Pelvis without Cont
[2021-08-26] MEDS: Morphine 4 MG/ML Syringe IV (21:46)
[2021-08-26] MEDS: Ondansetron 4 MG/2 ML Vial IV (21:46)
[2021-08-26 23:20] VITALS: BP 140/84; PULSE 84; RESP 16; TEMP 36.6; O2SAT 99
== END 2021-08-26 23:33 | disposition home or self-care (01) ==
PROVIDERS: Emergency Provider Student in an Organized Health Care Education/Training Program; PCP Internal Medicine; Visit Provider Student in an Organized Health Care Education/Training Program
DX: R10.9 Unspecified abdominal pain (principal); F17.210 Nicotine dependence, cigarettes, uncomplicated; R11.0 Nausea; R31.9 Hematuria, unspecified; N28.1 Cyst of kidney, acquired; Z87.442 Personal history of urinary calculi
CPT/HCPCS: 74176; 80048; 81001; 84703; 85025; 90471; 96374; 96375; 99283; A4216; J2405

== ENCOUNTER 2021-08-29 10:42 | Outpatient (CLI) | payer MEDICAID, SELFPAY ==
--- NOTE | 2021-08-28 | CYSPIN_PTH ---
PATIENT: NISSA COTA [facility]: [facility] U#:[id number] AGE/SX: 36/F ROOM: RE08/29/[address]: Dr. Anna Ferreira MD : 1985 BED: DIS: 08/29/2021 SPEC #: [id number] RECD: 08/28/21 16:00 STATUS: HUE [place] #: [id number] CORRIE: 08/28/21 00:[address]: Anna Ferreira DEPT: CYTOLOGY RECD BY: Duglas Cerrato ENTERED: 08/29/21 08:35 SP TYPE: CYSPIN FL OTHR DR: Dr. Luis Hinojosa MD Tissues: Urine Procedures: Pap Stain (control) Special Stain Group II Cytospin Fluid HEADER OPERATION: Not noted PRE-OP DIAGNOSIS: Gross hematuria TISSUE SUBMITTED: Urine for cytology DIAGNOSIS CYTOLOGY Urine for cytology (cytospin): Negative for malignant cells. See comment. ALISSA:ilsa 08/29/2021 COMMENT The specimen predominantly consists of squamous cells. CYTOLOGY STUDY Slides are reviewed. CYTOLOGY GROSS Received is 25 ml of hazy light yellow fluid labeled with the patient's name and and designated per the requisition as urine. Submitted for cytology preparation. / ilsa 08/28/2021 TC:4 CPT: 82860
[2021-08-28 16:37] LABS: Cytology, Body Fluid / CSF SEE PATHOLOGY REPORT
== END 2021-08-29 23:59 | disposition home or self-care (01) ==
LOC: LABSPEC 10:44
PROVIDERS: PCP Internal Medicine; Visit Provider Urology
DX: R31.0 Gross hematuria (principal)
CPT/HCPCS: 88108; 88313

== ENCOUNTER 2021-09-03 11:15 | Outpatient (CLI) | payer MEDICAID, SELFPAY ==
[2021-09-03 12:28] LABS: Erythrocyte Sedimentation Rate 2 mm/hr (0-30)
[2021-09-03 12:39] LABS: Rheumatoid Factor < 10.0 IU/mL (<15); Uric Acid 5.4 mg/dL (2.6-6.0)
[2021-09-05 13:37] LABS: Anti-Nuclear Antibody Test Negative (.)
== END 2021-09-03 23:59 | disposition home or self-care (01) ==
LOC: POLAB3 11:16
PROVIDERS: PCP Internal Medicine; Visit Provider Internal Medicine Nephrology
DX: R31.29 Other microscopic hematuria (principal)
CPT/HCPCS: 36415; 84550; 85652; 86038; 86431

== ENCOUNTER → 2021-09-29 | Outpatient (CLI) | payer MEDICAID, SELFPAY | END | disposition home or self-care (01) | PROVIDERS: PCP Internal Medicine; Referring Provider Internal Medicine Nephrology; Visit Provider Internal Medicine Nephrology | DX: R31.29 Other microscopic hematuria (principal); Z87.442 Personal history of urinary calculi | CPT/HCPCS: 81050 ==

== ENCOUNTER 2021-12-20 13:01 | Emergency (ER) | payer MEDICAID, SELFPAY ==
[2021-12-20 13:02] VITALS: BP 140/92; PULSE 90; RESP 16; TEMP 36.4; O2SAT 99; BMI 31.8
--- NOTE | 2021-12-20 13:19 | EDS_ITS ---
HPI History of Present Illness Chief Complaint: Cough Detail of Chief Complaint: Cough and hemoptysis today Informant: patient Narrative Narrative: Patient presents the emergency department with hemoptysis that started today. Patient states that she was brushing her teeth and she had to clear her throat and she noted there was some blood there. She had minimal cough. She denies any chest pain. She feels slightly short of breath. She is had increased fatigue. Patient was diagnosed with COVID-19 5 days ago and had symptoms for about 8 or 9 days. Patient has been vaccinated against COVID but has not had the booster. She was seen in urgent care and referred to the ER for concern for PE. Prior similar symptoms: No PFSH PFSH Medical History (Updated 12/20/21 @ 14:[address] Arnold Webb DO) Anxiety Home Medications ibuprofen 200 mg capsule 200 mg PO Q6H PRN pain 06/22/19 [History Last Taken Unknown] buspirone 5 mg tablet 5 mg PO DAILY anxiety 04/09/20 [History Last Taken 04/10/20] dicyclomine 10 mg capsule 10 mg PO TID PRN PRN stomach 04/09/20 [History Last Taken Unknown] pantoprazole 20 mg tablet,delayed release 20 mg PO DAILY reflux/stomach 04/09/20 [History Last Taken Unknown] atenolol 25 mg tablet 25 mg PO DAILY 08/26/21 [History Last Taken Unknown] Allergy/AdvReac Type Severity Reaction Status Date / Time adhesive tape Allergy Rash Verified 12/20/21 13:17 Family History Father Heart disease S/P triple vessel bypass Surgical History (Updated 12/18/21 @ 05:25 by David Landeros) History of wisdom tooth extraction, class II edentulism Laparoscopic Chromotubation S/P tonsillectomy and adenoidectomy Social History Smoking Status: Current every day smoker tobacco type: cigarettes alcohol intake: current substance use type: marijuana caffeine: Yes what type of physical activity do you participate in: walking seatbelt use: always do you feel safe at home: Yes additional social history: Boyfriend- Works at [employer] ROS ROS ED Review of Systems ROS Unobtainable: other Constitutional Constitutional ED: Reports lethargy; Denies chills, fever(s), sweats or weight loss Eyes Eyes: Denies blurry vision, change in vision or diplopia ENT ENT ED: Denies rhinorrhea or sore throat Cardiovascular Cardiovascular: Denies chest pain, orthopnea or racing heartbeat Respiratory/Chest Respiratory/Chest: Reports cough, dyspnea, dyspnea on exertion and other Details: Hemoptysis ; Denies orthopnea or sputum Gastrointestinal Gastrointestinal: Denies abdominal pain, diarrhea, nausea or vomiting Genitourinary Genitourinary ED: Denies dysuria, hematuria or urinary frequency Musculoskeletal Musculoskeletal: Denies arthralgias, back pain, myalgias or neck pain Integumentary Denies abscess, Abrasions or rash Neurologic Neurologic: Denies headache(s) or weakness Psychiatric Psychiatric: Denies anxiety, depression or suicidal thoughts Endocrine Endocrinology: Denies polydipsia, polyphagia or polyuria Hematologic/Lymphatic Hematologic/Lymphatic: Denies easy bleeding, easy bruising or lymphadenopathy Allergic/Immunologic Allergic/Immunologic ED: Denies mouth swelling, tongue swelling or urticaria EXAM Physical Exam Const Vital Signs: 12/20/21 13:02 12/20/21 13:34 Temperature 97.6 F L Temperature Source Temporal Pulse Rate 90 Respiratory Rate 16 Respiratory Effort Normal Non-Labored Respiratory Depth Normal Respiratory Pattern Normal Blood Pressure 140/92 H Blood Pressure Mean 108 Pulse Ox 99 Oxygen Delivery Method Room Air Room Air Positive well nourished and well developed General Appearance ED: well developed and NAD HEENT Reports TM's clear and moist mucous membranes normocephalic and atraumatic; Negative for trauma or tenderness Tympanic Membrane ED: Yes TM's clear Eyes PERRL and EOMs intact bilaterally General Eye ED: Negative for pale conjunctiva or scleral icterus Neck no lymphadenopathy, supple and no JVD General: Negative for tenderness Chest Wall inspection of chest normal and palpation of chest normal Chest: Negative for tenderness Resp normal respiratory effort and clear to auscultation bilaterally Effort and Inspection: Negative for respiratory distress or pain with movement Auscultation: Negative for rhonchi, wheezes or diminished lung sounds Cardio regular rate, regular rhythm, S1 normal heart sound, S2 normal heart sound and no murmurs Peripheral Pulses: pulses 2+ throughout GI normal to inspection, nondistended, normoactive bowel sounds, soft to palpation, non-tender, non-distended and no masses Back/Spine no CVA tenderness and no thoracic nor lumbar tenderness Extremity normal to inspection General Extremety ED: Negative for edema General Extremity: Negative for edema Neuro oriented x3, CN's II-XII intact bilaterally, no sensory deficits noted and gait normal Sensorium / Orientation: awake, alert, oriented to person, oriented to place and oriented to time Motor Exam: strength 5/5 throughout and strength abnormal Psych mental status grossly normal Skin no rashes or lesions noted and no wounds MDM MDM MDM Narrative Medical decision making narrative: Patient had a negative D-dimer test. At this point I do not feel she needs any further imaging. Patient looks well and has essentially normal vital signs. I suspect she may have had some irritation causing some bleeding with cough. I do not feel she needs any further management. Patient advised to follow-up with primary care physician in 3 to 5 days. She is advised to return if persistent bleeding, increasing shortness of breath, or condition should worsen anyway. Lab Data Attestation: I reviewed the patient's lab results. Labs: Laboratory Results - last 24 hr 12/20/21 13:20 D-Dimer Quant (PE/DVT) 0.35 Discharge Plan Triage Chief Complaint: Cough ED Provider: Arnold Webb Dx/Rx/DC Orders Clinical Impression: Hemoptysis, COVID-19 Instructions: Coronavirus Disease 2019 (COVID-19): Caring for Yourself or Others, ED Hemoptysis Prescriptions: No Action ibuprofen 200 mg capsule 200 mg PO Q6H PRN (Reason: pain) buspirone 5 MG tablet 5 mg PO DAILY pantoprazole 20 MG tablet 20 mg PO DAILY dicyclomine 10 MG capsule 10 mg PO TID PRN PRN (Reason: stomach) atenolol 25 mg Tablet 25 mg PO DAILY Primary Care Provider: Ambar Adams Referrals: Ambar Adams MD [Primary Care Provider] - 3-5 Days Disposition Disposition: Home, Self Care
[2021-12-20 13:49] LABS: D-Dimer Quantitative (DVT/PE) 0.35 FEU/ug/m (0.27-0.49)
[2021-12-20 14:32] VITALS: RESP 16
== END 2021-12-20 14:39 | disposition home or self-care (01) ==
PROVIDERS: Emergency Provider Emergency Medicine; PCP Internal Medicine; Visit Provider Emergency Medicine
DX: R04.2 Hemoptysis (principal); U07.1 COVID-19; F41.9 Anxiety disorder, unspecified; F17.210 Nicotine dependence, cigarettes, uncomplicated
CPT/HCPCS: 85379; 99283; A4216